=== PATIENT | female | born 1950 | race Caucasian/White ===

== ENCOUNTER 2017-01-12 14:22 | Emergency (ER) | payer OTHER ==
[~2017-01-12] VITALS: Ht 162.6 cm; Wt 69.5 kg
[~2017-01-12 14:22] MED LIST: BONIVA150 MG PO; CALCIUM + D3 E1 EACH PO; CLOPIDOGREL75 MG PO; CRESTOR5 MG PO; DAILY VALUE1 EACH PO; LO-DOSE ASPIRIN81 M1 PO; PRAVACHOL10 MG PO; SINGULAIR10 MG PO; SYMBICORT60 INHALAT IH; TRAMADOL HCL50 MG PO; VENTOLIN HFA18 GM IH; VENTOLIN17 GM IH; ZANTAC300 MG PO
[2017-01-12 15:49] LABS: HEMATOCRIT 41.7 % (36.0-46.0); MCH 28.2 PG (29.0-34.0); MCHC 32.9 G/DL (30.0-36.0); MEAN PLAT.VOLUME 8.8 uM^3 (9.5-12.4); PLATELET COUNT 198 K/uL (156-360); RBC DIS.WIDTH-CV 14.6 % (11.8-14.6); RBC DIS.WIDTH-SD 45.6 % (39-53); RED BLOOD COUNT 4.85 M/uL (3.80-5.20); WHITE BLOOD COUNT 8.8 K/uL (4.1-10.2)
[2017-01-12 15:57] LABS: CHLORIDE 104 mEq/L (99-109); POTASSIUM 3.8 mEq/L (3.7-5.4); SODIUM 139 mEq/L (136-147)
[2017-01-12 15:59] LABS: GLUCOSE 110 mg/dL (70-99)
[2017-01-12 16:00] LABS: ANION GAP 9 MEQ/L (2-14)
[2017-01-12 16:01] LABS: TOTAL BILIRUBIN 0.3 mg/dL (0.0-1.0)
[2017-01-12 16:03] LABS: ALKALINE PHOSPHATASE 106 IU/L (3-129); GFR ESTIMATE (CALCULATED) 53 mL/min/
[2017-01-12 16:04] LABS: ADD MIUA? NO; BILIRUBIN NEGATIVE; BLOOD NEGATIVE; COLOR COLORLESS ((YELLOW)); GLUCOSE (STRIP) NEGATIVE; KETONES NEGATIVE; LEUKOCYTES NEGATIVE; NITRITE NEGATIVE; PROTEIN (STRIP) NEGATIVE; SPECIFIC GRAVITY 1.004 (1.000-1.030); UCUL ADDED? NO; UROBILINOGEN 0.2 MG/DL (0.2-1.0)
[2017-01-12 16:04] LABS: UREA NITROGEN (BUN) 12 mg/dL (9-23)
[2017-01-12 16:06] LABS: LIPASE 14 U/L (1.0-51.0)
[2017-01-12 20:11] VITALS: BP 199/84
== END 2017-01-12 20:12 | disposition home or self-care (01) ==
LOC: EME 14:22
PROVIDERS: Physician Assistant Medical
DX: R10.9 Unspecified abdominal pain (principal); K92.1 Melena; I71.4 Abdominal aortic aneurysm, without rupture; Z86.73 Personal history of transient ischemic attack (TIA), and cerebral infarction without residual deficits; J44.9 Chronic obstructive pulmonary disease, unspecified; Z87.891 Personal history of nicotine dependence
CPT/HCPCS: 74177; 80053; 81003; 83690; 85027; 99281; 99285; J7030